=== PATIENT | male | born 2000 | race African-American/Black ===

== ENCOUNTER 2022-12-25 13:44 | Outpatient (CLI) | payer OTHER ==
[2022-12-25 14:24] LABS: PLATELET COUNT 289 K/uL (142-355)
[2022-12-25 14:32] LABS: POTASSIUM 3.8 mmol/L (3.6-5.2)
== END 2022-12-25 19:34 | disposition home or self-care (01) ==
LOC: LABW 13:44
PROVIDERS: ATTEND Family Medicine
DX: R10.31 Right lower quadrant pain (principal); R10.33 Periumbilical pain
CPT/HCPCS: 36415; 80053; 85027; Q9963